=== PATIENT | female | born 1945 | race Caucasian/White ===

== ENCOUNTER 2023-04-24 09:55 | Day surgery (SDC) | payer OTHER, BC ==
[2023-04-20 13:54] VITALS: BMI 19.8
[2023-04-24 11:02] VITALS: RESP 16; TEMP 96.7
[2023-04-24 11:34] VITALS: BP 114/67; PULSE 61
== END 2023-04-24 11:34 | disposition home or self-care (01) ==
LOC: FASU-ENDO 09:55
PROVIDERS: ATTEND Internal Medicine Gastroenterology
PROC: 0DB68ZX Excision of Stomach, Via Natural or Artificial Opening Endoscopic, Diagnostic (ICD-10-PCS; 2023-04-24)
PROC: 0DB38ZX Excision of Lower Esophagus, Via Natural or Artificial Opening Endoscopic, Diagnostic (ICD-10-PCS; principal; 2023-04-24 10:35)
DX: K22.10 Ulcer of esophagus without bleeding (principal); K29.50 Unspecified chronic gastritis without bleeding; K31.7 Polyp of stomach and duodenum; K44.9 Diaphragmatic hernia without obstruction or gangrene; R13.10 Dysphagia, unspecified; R12 Heartburn
CPT/HCPCS: 88305-TC; 88312-TC; 88342-TC